=== PATIENT | female | born 1965 | race Caucasian/White ===

== ENCOUNTER 2018-06-09 06:24 | Day surgery (SDC) | payer OTHER ==
[2018-06-07 16:18] VITALS: BMI 46.5
--- NOTE | 2018-06-09 08:15 | HP ---
CHIEF COMPLAINT: Major Depressive Disorder PCP: Dr. Gabriella Cash, [place], [place] Primary psychiatrist: Dr. Samuels HISTORY OF PRESENT ILLNESS: 52 year-old woman with a PMH significant for major depressive disorder. Patient first underwent ECT in May 2015. She was recently hospitalized at [facility] from 02/17 to 06/07/18 and resumed ECT during that hospitalization. Patient presents today for ECT. PAST MEDICAL HISTORY: Major Depressive Disorder Anemia Obesity PAST SURGICAL HISTORY: Social History: Lives with Smoking: no Alcohol: no Drugs: no Family History: Allergies gabapentin Adverse Reaction (Severe, Verified 06/07/18 16:43) AFFECTS THOUGHTS OF REALITY ketamine Adverse Reaction (Severe, Verified 06/07/18 16:45) NEEDED TO BE REVERSED WHEN RECEIVED THIS NSAIDS (Non-Steroidal Anti-Inflamma Adverse Reaction (Severe, Verified 06/07/18 16:46) ABDOMINAL PAIN PT HAD A GASTRIC BYPASS AND CANNOT RECEIVE NSAIDS Opioids - Morphine Analogues Adverse Reaction (Severe, Verified 06/07/18 16:58) ABDOMINAL SPASMS CANNOT HAVE ANY OPIOIDS oxycodone Adverse Reaction (Severe, Verified 06/07/18 16:47) ABDOMINAL SPASMS tramadol Adverse Reaction (Severe, Verified 06/07/18 16:45) HEADACHES Home Medications Medication Instructions Recorded Cholecalciferol (Vitamin D3) 5,000 unit PO DAILY 06/07/18 [Vitamin D3] Clonazepam 1 mg PO TID 06/07/18 Cyanocobalamin [Vitamin B12 -] 1,000 mcg PO HS 06/07/18 Diphenhydramine [Benadryl -] 50 mg PO HS 06/07/18 Duloxetine HCl [Cymbalta] 60 mg PO BID 06/07/18 Fexofenadine HCl [Bree Allergy] 60 mg PO DAILY 06/07/18 Folic Acid 1 mg PO DAILY 06/07/18 Hydroxyzine HCl 50 mg PO Q4H PRN 06/07/18 [place] Carbonate [Eskalith -] 300 mg PO BID 06/07/18 Multivitamin [One-Daily 1 each PO DAILY 06/07/18 Multi-Vitamin] Prazosin HCl 4 mg PO HS 06/07/18 Zolpidem Tartrate [Ambien] 10 mg PO HS 06/07/18 REVIEW OF SYSTEMS CONSTITUTIONAL: Absent: fever, chills, diaphoresis, generalized weakness, malaise, loss of appetite, weight change HEENT: Absent: rhinorrhea, nasal congestion, throat pain, throat swelling, difficulty swallowing, mouth swelling, ear pain, eye pain, visual changes CARDIOVASCULAR: Absent: chest pain, syncope, palpitations, irregular heart rate, lightheadedness , peripheral edema RESPIRATORY: Absent: cough, shortness of breath, dyspnea with exertion, orthopnea, wheezing, stridor, hemoptysis GASTROINTESTINAL: Absent: abdominal pain, abdominal distension, nausea, vomiting, diarrhea, constipation, melena, hematochezia GENITOURINARY: Absent: dysuria, frequency, urgency, hesitancy, hematuria, flank pain, genital pain MUSCULOSKELETAL: Absent: myalgia, arthralgia, joint swelling, back pain, neck pain SKIN: Absent: rash, itching, pallor HEMATOLOGIC/IMMUNOLOGIC: Absent: easy bleeding, easy bruising, lymphadenopathy, frequent infections ENDOCRINE: Absent: unexplained weight gain, unexplained weight loss, heat intolerance, cold intolerance NEUROLOGIC: Absent: headache, focal weakness or paresthesias, dizziness, unsteady gait, seizure, mental status changes, bladder or bowel incontinence PHYSICAL EXAMINATION Vital Signs - 24 hr 06/09/18 07:27 Temperature 98.7 F Pulse Rate 70 Respiratory 18 Rate Blood Pressure 112/60 O2 Sat by Pulse 96 Oximetry (%) GENERAL: Awake, alert, and fully oriented, in no acute distress. HEAD: Normal with no signs of trauma. EYES: Pupils equal, round and reactive to light, sclera anicteric, conjunctiva clear. LUNGS: Breath sounds equal, clear to auscultation bilaterally. No wheezes, and no crackles. No accessory muscle use. HEART: Regular rate and rhythm, normal S1 and S2 ABDOMEN: Soft, nontender, not distended MUSCULOSKELETAL: Normal range of motion at all joints. No bony deformities or tenderness. No CVA tenderness. UPPER EXTREMITIES: 2+ pulses, warm, well-perfused. No cyanosis. No clubbing. No peripheral edema. LOWER EXTREMITIES: 2+ pulses, warm, well-perfused. No calf tenderness. No peripheral edema. NEUROLOGICAL: Cranial nerves II-XII intact. Normal speech. ASSESSMENT/PLAN 52 year-old woman with a PMH significant for major depressive disorder. Patient first underwent ECT in May 2015. She was recently hospitalized at [facility] from 02/17 to 06/07/18 and resumed ECT during that hospitalization. Cardiac --no cardiac history --Revised Cardiac Risk Index for Pre-Operative Risk: 0 points, 0.4% risk of major cardiac event Pulmonary --no pulmonary history Neurological --no neurological or neurosurgical history; no history of trauma Anesthesia --no reported problems with anesthesia ECT is a low risk procedure. The relative benefits of the planned procedure outweigh the relative risks for this patient at this time.
[2018-06-09 09:43] VITALS: TEMP 97.6
[2018-06-09] MEDS ORDERED: ACETAMINOPHEN 325 MG TABLET (FP) ONE (09:48)
[2018-06-09 10:08] VITALS: BP 106/50; PULSE 86
[2018-06-09] MEDS ORDERED: ACETAMINOPHEN 325 MG TABLET (FP) PO ONE (10:21)
== END 2018-06-09 10:30 | disposition home or self-care (01) ==
LOC: FECT 06:24
PROVIDERS: ATTEND Psychiatry & Neurology Psychiatry
PROC: GZB4ZZZ Other Electroconvulsive Therapy (ICD-10-PCS; principal; 2018-06-09 07:30)
DX: F33.2 Major depressive disorder, recurrent severe without psychotic features (principal)
CPT/HCPCS: 90870; 94760

== ENCOUNTER 2018-06-14 05:52 | Day surgery (SDC) | payer OTHER ==
[2018-06-14 07:11] VITALS: BMI 46.5
[2018-06-14] MEDS ORDERED: KETAMINE HCL 500 MG/10 ML VIAL ONE (07:43)
[2018-06-14 08:47] VITALS: TEMP 97.7
[2018-06-14] MEDS ORDERED: ACETAMINOPHEN 325 MG TABLET (FP) ONE (09:06)
[2018-06-14] MEDS ORDERED: ACETAMINOPHEN 325 MG TABLET (FP) PO PRN (09:25)
[2018-06-14 09:29] VITALS: BP 103/70; PULSE 77
== END 2018-06-14 09:40 | disposition home or self-care (01) ==
LOC: FECT 05:52
PROVIDERS: ATTEND Psychiatry & Neurology Psychiatry
PROC: GZB4ZZZ Other Electroconvulsive Therapy (ICD-10-PCS; principal; 2018-06-14 08:15)
DX: F33.2 Major depressive disorder, recurrent severe without psychotic features (principal)
CPT/HCPCS: 90870; 94760

== ENCOUNTER 2018-06-17 05:52 | Day surgery (SDC) | payer OTHER ==
[2018-06-14 11:04] VITALS: BMI 46.5
[2018-06-17 08:30] VITALS: PULSE 70; TEMP 98.2
[2018-06-17] MEDS ORDERED: ACETAMINOPHEN 325 MG TABLET (FP) PO ONE (08:34)
[2018-06-17 09:32] VITALS: BP 136/80
== END 2018-06-17 09:24 | disposition home or self-care (01) ==
LOC: FECT 05:52
PROVIDERS: ATTEND Psychiatry & Neurology Psychiatry
PROC: GZB4ZZZ Other Electroconvulsive Therapy (ICD-10-PCS; principal; 2018-06-17 08:45)
DX: F33.2 Major depressive disorder, recurrent severe without psychotic features (principal)
CPT/HCPCS: 90870; 94760

== ENCOUNTER 2018-06-24 05:53 | Day surgery (SDC) | payer OTHER ==
[2018-06-24 08:20] VITALS: TEMP 98.7; BMI 46.5
[2018-06-24] MEDS ORDERED: ACETAMINOPHEN 325 MG TABLET (FP) ONE (10:25)
[2018-06-24] MEDS ORDERED: ACETAMINOPHEN 325 MG TABLET (FP) PO ONE (10:29)
[2018-06-24 10:51] VITALS: BP 125/65; PULSE 66
== END 2018-06-24 10:40 | disposition home or self-care (01) ==
LOC: FECT 05:53
PROVIDERS: ATTEND Psychiatry & Neurology Psychiatry
PROC: GZB4ZZZ Other Electroconvulsive Therapy (ICD-10-PCS; principal; 2018-06-24 07:45)
DX: F32.9 Major depressive disorder, single episode, unspecified (principal)
CPT/HCPCS: 90870; 94760

== ENCOUNTER 2018-06-28 05:48 | Day surgery (SDC) | payer OTHER ==
[2018-06-28 08:07] VITALS: BMI 46.5
[2018-06-28] MEDS ORDERED: ACETAMINOPHEN 325 MG TABLET (FP) ONE (09:50)
[2018-06-28 09:53] VITALS: TEMP 98.2
[2018-06-28] MEDS ORDERED: ONDANSETRON 4 MG/2 ML VIAL IVPUSH PRN (10:18)
[2018-06-28] MEDS ORDERED: ACETAMINOPHEN 325 MG TABLET (FP) PO PRN (10:18)
[2018-06-28] MEDS ORDERED: LACTATED RINGERS SOLUTION 1,000 ML IV SCH (10:30)
[2018-06-28 10:57] VITALS: BP 121/69; PULSE 71
== END 2018-06-28 10:45 | disposition home or self-care (01) ==
LOC: FECT 05:48
PROVIDERS: ATTEND Psychiatry & Neurology Psychiatry
PROC: GZB4ZZZ Other Electroconvulsive Therapy (ICD-10-PCS; principal; 2018-06-28 08:30)
DX: F32.9 Major depressive disorder, single episode, unspecified (principal)
CPT/HCPCS: 90870; 94760

== ENCOUNTER 2018-07-05 05:50 | Day surgery (SDC) | payer OTHER ==
[2018-06-29 09:47] VITALS: BMI 46.5
[2018-07-05 08:31] VITALS: TEMP 97.2
[2018-07-05] MEDS ORDERED: ACETAMINOPHEN 325 MG TABLET (FP) PO ONE (08:45)
[2018-07-05] MEDS ORDERED: ACETAMINOPHEN 325 MG TABLET (FP) ONE (09:14)
[2018-07-05] MEDS ORDERED: ACETAMINOPHEN 325 MG TABLET (FP) PO PRN (09:38)
[2018-07-05] MEDS ORDERED: PROMETHAZINE HCL 25 MG/1 ML VIAL IVPB PRN (09:38)
[2018-07-05] MEDS ORDERED: LACTATED RINGERS SOLUTION 1,000 ML IV SCH (09:45)
[2018-07-05 10:09] VITALS: BP 119/75; PULSE 64
== END 2018-07-05 09:50 | disposition home or self-care (01) ==
LOC: FECT 05:50
PROVIDERS: ATTEND Psychiatry & Neurology Psychiatry
PROC: GZB4ZZZ Other Electroconvulsive Therapy (ICD-10-PCS; principal; 2018-07-05 07:30)
DX: F33.2 Major depressive disorder, recurrent severe without psychotic features (principal)
CPT/HCPCS: 90870; 94760

== ENCOUNTER 2018-07-19 05:41 | Day surgery (SDC) | payer OTHER ==
[2018-07-19] MEDS ORDERED: ACETAMINOPHEN 325 MG TABLET (FP) PO PRN (07:35)
[2018-07-19] MEDS ORDERED: PROMETHAZINE HCL 25 MG/1 ML VIAL IVPB PRN (07:35)
[2018-07-19 07:36] VITALS: BMI 46.5
--- NOTE | 2018-07-19 07:39 | HP ---
CHIEF COMPLAINT: Major Depressive Disorder PCP: Dr. Gabriella Cash, [place], [place] Primary psychiatrist: Dr. Wally Em, [place], [place] HISTORY OF PRESENT ILLNESS: 52 year-old woman with a PMH significant for major depressive disorder. Patient first underwent ECT in May 2015. She was hospitalized at [facility] from 02/17 to 06/07/18 and resumed ECT during that hospitalization. Patient presents today for ECT. RECENT EVENTS * diphenhydramine d/c'd * clonazepam TID-->BID, tolerating well PAST MEDICAL HISTORY: Major Depressive Disorder Anemia Obesity PAST SURGICAL HISTORY: None reported Social History: Lives with Smoking: no Alcohol: no Drugs: no Allergies gabapentin Adverse Reaction (Severe, Verified 06/07/18 16:43) AFFECTS THOUGHTS OF REALITY ketamine Adverse Reaction (Severe, Verified 06/07/18 16:45) NEEDED TO BE REVERSED WHEN RECEIVED THIS NSAIDS (Non-Steroidal Anti-Inflamma Adverse Reaction (Severe, Verified 06/07/18 16:46) ABDOMINAL PAIN PT HAD A GASTRIC BYPASS AND CANNOT RECEIVE NSAIDS Opioids - Morphine Analogues Adverse Reaction (Severe, Verified 06/07/18 16:58) ABDOMINAL SPASMS CANNOT HAVE ANY OPIOIDS oxycodone Adverse Reaction (Severe, Verified 06/07/18 16:47) ABDOMINAL SPASMS tramadol Adverse Reaction (Severe, Verified 06/07/18 16:45) HEADACHES HOME MEDICATIONS: Home Medications Medication Instructions Recorded Cholecalciferol (Vitamin D3) 5,000 unit PO DAILY 06/07/18 [Vitamin D3] Clonazepam 1 mg PO BID 06/07/18 Cyanocobalamin [Vitamin B12 -] 1,000 mcg PO HS 06/07/18 Duloxetine HCl [Cymbalta] 60 mg PO BID 06/07/18 Fexofenadine HCl [Bree Allergy] 60 mg PO DAILY 06/07/18 Folic Acid 1 mg PO DAILY 06/07/18 Hydroxyzine HCl 50 mg PO Q4H PRN 06/07/18 [place] Carbonate [Eskalith -] 300 mg PO BID 06/07/18 Multivitamin [One-Daily 1 each PO DAILY 06/07/18 Multi-Vitamin] Prazosin HCl 4 mg PO HS 06/07/18 Zolpidem Tartrate [Ambien] 10 mg PO HS 06/07/18 REVIEW OF SYSTEMS CONSTITUTIONAL: Absent: fever, chills, diaphoresis, generalized weakness, malaise, loss of appetite, weight change HEENT: Absent: rhinorrhea, nasal congestion, throat pain, throat swelling, difficulty swallowing, mouth swelling, ear pain, eye pain, visual changes CARDIOVASCULAR: Absent: chest pain, syncope, palpitations, irregular heart rate, lightheadedness , peripheral edema RESPIRATORY: Absent: cough, shortness of breath, dyspnea with exertion, orthopnea, wheezing, stridor, hemoptysis GASTROINTESTINAL: Absent: abdominal pain, abdominal distension, nausea, vomiting, diarrhea, constipation, melena, hematochezia GENITOURINARY: Absent: dysuria, frequency, urgency, hesitancy, hematuria, flank pain, genital pain MUSCULOSKELETAL: Absent: myalgia, arthralgia, joint swelling, back pain, neck pain SKIN: Absent: rash, itching, pallor HEMATOLOGIC/IMMUNOLOGIC: Absent: easy bleeding, easy bruising, lymphadenopathy, frequent infections ENDOCRINE: Absent: unexplained weight gain, unexplained weight loss, heat intolerance, cold intolerance NEUROLOGIC: Absent: headache, focal weakness or paresthesias, dizziness, unsteady gait, seizure, mental status changes, bladder or bowel incontinence PHYSICAL EXAMINATION Vital Signs - 24 hr 07/19/18 07:31 Temperature 98.5 F Pulse Rate 66 Respiratory 18 Rate Blood Pressure 130/71 O2 Sat by Pulse 99 Oximetry (%) GENERAL: Awake, alert, and fully oriented, in no acute distress. HEAD: Normal with no signs of trauma. EYES: Pupils equal, round and reactive to light, sclera anicteric, conjunctiva clear. LUNGS: Breath sounds equal, clear to auscultation bilaterally. No wheezes, and no crackles. No accessory muscle use. HEART: Regular rate and rhythm, normal S1 and S2 ABDOMEN: Soft, nontender, not distended MUSCULOSKELETAL: Normal range of motion at all joints. No bony deformities or tenderness. No CVA tenderness. UPPER EXTREMITIES: 2+ pulses, warm, well-perfused. No cyanosis. No clubbing. No peripheral edema. LOWER EXTREMITIES: 2+ pulses, warm, well-perfused. No calf tenderness. No peripheral edema. NEUROLOGICAL: Cranial nerves II-XII intact. Normal speech. ASSESSMENT/PLAN: 52 year-old woman with a PMH significant for major depressive disorder. Patient presents today for ECT. Cardiac --no cardiac history --Revised Cardiac Risk Index for Pre-Operative Risk: 0 points, 0.4% risk of major cardiac event Pulmonary --no pulmonary history Neurological --no neurological or neurosurgical history; no history of trauma Anesthesia --no reported problems with anesthesia ECT is a low risk procedure. The relative benefits of the planned procedure outweigh the relative risks for this patient at this time. Visit type - Emergency Visit Emergency Visit: No - New Patient This patient is new to me today: Yes Date on this admission: 07/19/18 - Critical Care Critical Care patient: No
[2018-07-19] MEDS ORDERED: LACTATED RINGERS SOLUTION 1,000 ML IV SCH (07:45)
[2018-07-19 09:22] VITALS: TEMP 98.2
[2018-07-19] MEDS ORDERED: ACETAMINOPHEN 325 MG TABLET (FP) ONE (09:23)
[2018-07-19 09:45] VITALS: BP 120/68; PULSE 90
== END 2018-07-19 09:50 | disposition home or self-care (01) ==
LOC: FECT 05:41
PROVIDERS: ATTEND Psychiatry & Neurology Psychiatry
PROC: GZB4ZZZ Other Electroconvulsive Therapy (ICD-10-PCS; principal; 2018-07-19 07:00)
DX: F33.2 Major depressive disorder, recurrent severe without psychotic features (principal)
CPT/HCPCS: 90870; 94760

== ENCOUNTER 2018-07-27 05:42 | Day surgery (SDC) | payer OTHER ==
[2018-07-27 06:55] VITALS: BMI 46.5
[2018-07-27] MEDS ORDERED: ACETAMINOPHEN 325 MG TABLET (FP) ONE (08:41)
[2018-07-27 09:03] VITALS: TEMP 98.1
[2018-07-27 09:05] VITALS: BP 101/58; PULSE 69
== END 2018-07-27 09:00 | disposition home or self-care (01) ==
LOC: FECT 05:42
PROVIDERS: ATTEND Psychiatry & Neurology Psychiatry
PROC: GZB4ZZZ Other Electroconvulsive Therapy (ICD-10-PCS; principal; 2018-07-27 07:00)
DX: F32.9 Major depressive disorder, single episode, unspecified (principal)
CPT/HCPCS: 90870; 94760

== ENCOUNTER 2018-08-11 05:47 | Day surgery (SDC) | payer OTHER ==
[2018-08-06 11:05] VITALS: BMI 46.5
[2018-08-11] MEDS ORDERED: ACETAMINOPHEN 325 MG TABLET (FP) ONE (07:57)
[2018-08-11 08:49] VITALS: BP 112/80; PULSE 72; TEMP 98
== END 2018-08-11 08:51 | disposition home or self-care (01) ==
LOC: FECT 05:47
PROVIDERS: ATTEND Psychiatry & Neurology Psychiatry
PROC: GZB4ZZZ Other Electroconvulsive Therapy (ICD-10-PCS; principal; 2018-08-11 07:30)
DX: F32.9 Major depressive disorder, single episode, unspecified (principal)
CPT/HCPCS: 90870; 94760

== ENCOUNTER 2018-08-24 05:45 | Day surgery (SDC) | payer OTHER ==
[2018-08-11 14:04] VITALS: BMI 46.5
--- NOTE | 2018-08-24 08:01 | HP ---
CHIEF COMPLAINT: Major Depressive Disorder PCP: Dr. Gabriella Cash, [place], [place] [phone] Primary psychiatrist: Dr. Wally Em, [place], [place] HISTORY OF PRESENT ILLNESS: 52 year-old woman with a PMH significant for major depressive disorder. Patient first underwent ECT in May 2015. She was hospitalized at [facility] from 02/17 to 06/07/18 and resumed ECT during that hospitalization. Patient presents today for ECT. RECENT EVENTS * developed frontal headache x 1 week; seen by PCP, started on magnesium 100mg BID and B2 400mg daily PAST MEDICAL HISTORY: Major Depressive Disorder Anemia Obesity Migraines Sinusitis PAST SURGICAL HISTORY: None reported Social History: Lives with Smoking: no Alcohol: no Drugs: no Allergies dextromethorphan [From Delsym] Adverse Reaction (Severe, Verified 08/11/18 06:42 ) ABDOMINAL PAIN gabapentin Adverse Reaction (Severe, Verified 08/11/18 06:42) AFFECTS THOUGHTS OF REALITY ketamine Adverse Reaction (Severe, Verified 08/11/18 06:42) NEEDED TO BE REVERSED WHEN RECEIVED THIS NSAIDS (Non-Steroidal Anti-Inflamma Adverse Reaction (Severe, Verified 08/11/18 06:42) ABDOMINAL PAIN PT HAD A GASTRIC BYPASS AND CANNOT RECEIVE NSAIDS Opioids - Morphine Analogues Adverse Reaction (Severe, Verified 08/11/18 06:42) ABDOMINAL SPASMS CANNOT HAVE ANY OPIOIDS oxycodone Adverse Reaction (Severe, Verified 08/11/18 06:42) ABDOMINAL SPASMS tramadol Adverse Reaction (Severe, Verified 08/11/18 06:42) HEADACHES HOME MEDICATIONS: Home Medications Medication Instructions Recorded Cholecalciferol (Vitamin D3) 5,000 unit PO DAILY 06/07/18 [Vitamin D3] Clonazepam 1 mg PO BID 06/07/18 Cyanocobalamin [Vitamin B12 -] 1,000 mcg PO HS 06/07/18 Duloxetine HCl [Cymbalta] 60 mg PO BID 06/07/18 Fexofenadine HCl [Bree Allergy] 60 mg PO DAILY 06/07/18 Folic Acid 1 mg PO DAILY 06/07/18 Hydroxyzine HCl 50 mg PO Q4H PRN 06/07/18 [place] Carbonate [Eskalith -] 300 mg PO BID 06/07/18 Multivitamin [One-Daily 1 each PO DAILY 06/07/18 Multi-Vitamin] Prazosin HCl 4 mg PO HS 06/07/18 Zolpidem Tartrate [Ambien] 10 mg PO HS 06/07/18 Acetaminophen [Tylenol 1,000 mg PO Q6H PRN 07/27/18 .Extra-Strength -] REVIEW OF SYSTEMS CONSTITUTIONAL: Absent: fever, chills, diaphoresis, generalized weakness, malaise, loss of appetite, weight change HEENT: Absent: rhinorrhea, nasal congestion, throat pain, throat swelling, difficulty swallowing, mouth swelling, ear pain, eye pain, visual changes CARDIOVASCULAR: Absent: chest pain, syncope, palpitations, irregular heart rate, lightheadedness , peripheral edema RESPIRATORY: Absent: cough, shortness of breath, dyspnea with exertion, orthopnea, wheezing, stridor, hemoptysis GASTROINTESTINAL: Absent: abdominal pain, abdominal distension, nausea, vomiting, diarrhea, constipation, melena, hematochezia GENITOURINARY: Absent: dysuria, frequency, urgency, hesitancy, hematuria, flank pain, genital pain MUSCULOSKELETAL: Absent: myalgia, arthralgia, joint swelling, back pain, neck pain SKIN: Absent: rash, itching, pallor HEMATOLOGIC/IMMUNOLOGIC: Absent: easy bleeding, easy bruising, lymphadenopathy, frequent infections ENDOCRINE: Absent: unexplained weight gain, unexplained weight loss, heat intolerance, cold intolerance NEUROLOGIC: +headache (frontal and sometimes centered over right eye) x 1 week Absent: focal weakness or paresthesias, dizziness, unsteady gait, seizure, mental status changes, bladder or bowel incontinence PHYSICAL EXAMINATION GENERAL: Awake, alert, and fully oriented, in no acute distress. HEAD: Mild tenderness over right frontal sinus EYES: Pupils equal, round and reactive to light, sclera anicteric, conjunctiva clear. LUNGS: Breath sounds equal, clear to auscultation bilaterally. No wheezes, and no crackles. No accessory muscle use. HEART: Regular rate and rhythm, normal S1 and S2 ABDOMEN: Soft, nontender, not distended MUSCULOSKELETAL: Normal range of motion at all joints. No bony deformities or tenderness. No CVA tenderness. UPPER EXTREMITIES: 2+ pulses, warm, well-perfused. No cyanosis. No clubbing. No peripheral edema. LOWER EXTREMITIES: 2+ pulses, warm, well-perfused. No calf tenderness. No peripheral edema. NEUROLOGICAL: Cranial nerves II-XII intact. Normal speech. ASSESSMENT/PLAN: 52 year-old woman with a PMH significant for major depressive disorder. Patient presents today for ECT. Cardiac --needs ECG today --no cardiac history --Revised Cardiac Risk Index for Pre-Operative Risk: 0 points, 0.4% risk of major cardiac event Pulmonary --no pulmonary history Neurological --frontal headache with tenderness over right eye and with clear nasal discharge; was seen by PCP, started on magnesium and B2; has h/o sinusitis, already taking Bree; recommended patient ask PCP for nasal spray such as fluticasone --will get labs today --no neurological or neurosurgical history; no history of trauma Anesthesia --no reported problems with anesthesia ECT is a low risk procedure. The relative benefits of the planned procedure outweigh the relative risks for this patient at this time. Visit type - Emergency Visit Emergency Visit: No - New Patient This patient is new to me today: Yes Date on this admission: 08/24/18 - Critical Care Critical Care patient: No
[2018-08-24] MEDS ORDERED: ACETAMINOPHEN 325 MG TABLET (FP) ONE (09:46)
[2018-08-24 10:35] LABS: BASO % 0.7 % (0-2.0); EOS % 3.5 % (0-4.5); HEMATOCRIT 36.3 % (32.4-45.2); HEMOGLOBIN 12.2 GM/dl (10.7-15.3); LYMPH % 21.4 % (8-40); MCH 31.2 pg (25.7-33.7); MCHC 33.5 g/dl (32.0-36.0); MEAN CELL VOLUME 93.1 fl (80-96); MEAN PLT VOLUME 9.2 fl (7.5-11.1); MONO % 4.9 % (3.8-10.2); NEUT % 69.5 % (42.8-82.8); PLATELET COUNT 247 K/MM3 (134-434); WHITE BLOOD COUNT 7.4 K/mm3 (4.0-10.8)
[2018-08-24 10:36] VITALS: TEMP 97.9
[2018-08-24 10:52] LABS: ALBUMIN 3.6 g/dl (3.4-5.0); ALK PHOS 57 U/L (45-117); ANION GAP 9 MMOL/L (8-16); BLOOD UREA NITROGEN 17 mg/dl (7-18); CALCIUM 9.2 mg/dl (8.5-10); CHLORIDE 102 mmol/L (98-107); CO2 27 mmol/L (21-32); CREATININE 0.8 mg/dl (0.55-1.3); GLUCOSE,RANDOM 98 mg/dl (74-106); MAGNESIUM 1.9 mg/dL (1.8-2.4); POTASSIUM 4.3 mmol/L (3.5-5.1); SGOT/AST 30 U/L (15-37); SGPT/ALT 25 U/L (13-61); SODIUM 138 mmol/L (136-145); TOT PROT 6.3 g/dl (6.4-8.2)
[2018-08-24 11:06] VITALS: BP 102/64; PULSE 74
[2018-08-24] MEDS ORDERED: LACTATED RINGERS SOLUTION 1,000 ML IV SCH (11:45)
[2018-08-25 08:06] LABS: SERUM IRON SATURATION 17 % (15-55); TOTAL IRON BINDING CAPACITY 409 ug/dL (250-450); UIBC 341 ug/dL (131-425)
--- NOTE | 2018-08-26 14:04 | EKG ---
Test Reason : Blood Pressure : / mmHG Vent. Rate : 073 BPM Atrial Rate : 073 BPM P-R Int : 166 ms QRS Dur : 086 ms QT Int : 418 ms P-R-T Axes : 053 055 060 degrees QTc Int : 460 ms NORMAL SINUS RHYTHM LOW VOLTAGE QRS CANNOT RULE OUT ANTERIOR INFARCT , AGE UNDETERMINED ABNORMAL ECG NO PREVIOUS ECGS AVAILABLE Confirmed by RAFAEL EUBANKS MD ([id number]) on 08/26/2018 2:04:30 PM Referred By: Carlin Samuels Confirmed By:RAFAEL EUBANKS MD
== END 2018-08-24 10:50 | disposition home or self-care (01) ==
LOC: FECT 05:45
PROVIDERS: ATTEND Psychiatry & Neurology Psychiatry
PROC: GZB4ZZZ Other Electroconvulsive Therapy (ICD-10-PCS; principal; 2018-08-24 08:15)
DX: F32.9 Major depressive disorder, single episode, unspecified (principal)
CPT/HCPCS: 36415; 80053; 82728; 83540; 83550; 83735; 84466; 85025; 90870; 93005; 93010; 94760